=== PATIENT | female | born 1995 | race African-American/Black ===

== ENCOUNTER 2017-01-30 19:58 | Emergency (ER) | payer MEDICAID, OTHER ==
[~2017-01-30] VITALS: Ht 157.5 cm; Wt 60.0 kg
[~2017-01-30 19:58] MED LIST: IBUP400T20 PO
[2017-01-30 19:59] VITALS: BP 160/79; PULSE 85; RESP 16; TEMP 99.2; O2SAT 98
[2017-01-30] MEDS ORDERED: HYDR-3133 PO (21:14)
[2017-01-30] MEDS ORDERED: PRED20 PO (21:14)
--- NOTE | 2017-01-30 21:14 | PD ---
HPI Chief Complaint: Bite or Sting Time Seen by Provider: 20:31 Travel History International Travel<30 days: No Contact w/Intl Traveler<30days: No Traveled to known affect area: No History of Present Illness HPI 21 year-old female left no significant medical history presents to the emergency department for evaluation of that bug bites. Patient states that her mother's house has bedbugs and she was sleeping on the guest bedroom and she sustained the bites. It was sleeping on the couch in got more. She now lives with her aunt but states the bites are itching terribly. She denies any other new exposures. No fever chills. No chest parotitis. No difficulty breathing. No other symptoms to report. PFSH Past Medical History Medical History: Denies Significant Hx ?: Not Social History Alcohol Use: No Tobacco Use: No Substance Use: No Allergies-Medications (Allergen,Severity, Reaction): Coded Allergies: penicillin G (Unverified Allergy, Severe, Hives, 01/30/17) Reported Meds & Prescriptions Reported Meds & Active Scripts Active Prednisone 20 Mg Tab 20 Mg PO BID 5 Days Hydroxyzine HCl 25 Mg Tab 25 Mg PO QID PRN Review of Systems Except as stated in HPI: all other systems reviewed are Neg Physical Exam Narrative GENERAL: Well-nourished, well-developed female patient, ambulatory no acute distress SKIN: Focused skin assessment warm/dry. There are erythematous, blanchable wheals on the upper extremities, in a linear pattern. There are smaller edematous papules on the forearms. No pustule or vesicle formation. HEAD: Normocephalic. EYES: No scleral icterus. No injection or drainage. NECK: Supple, trachea midline. No JVD or lymphadenopathy. CARDIOVASCULAR: Regular rate and rhythm without murmurs, gallops, or rubs. RESPIRATORY: Breath sounds equal bilaterally. No accessory muscle use. MUSCULOSKELETAL: No cyanosis, or edema. BACK: Nontender without obvious deformity. No CVA tenderness. Data Data Last Documented VS Vital Signs Date Time Temp Pulse Resp B/P (MAP) Pulse Ox O2 Delivery O2 Flow Rate FiO2 01/30/17 19:59 99.2 85 16 160/79 (106) 98 Room Air Orders Orders Dexamethasone Inj (Decadron Inj) (01/30/17 21:15) Diphenhydramine Inj (Benadryl Inj) (01/30/17 21:15) [facility] Medical Decision Making Medical Screen Exam Complete: Yes Emergency Medical Condition: Yes Medical Record Reviewed: Yes Differential Diagnosis Insect bites versus scabies versus contact dermatitis versus folliculitis versus local reaction Narrative Course 21 year-old female presents to the emergency department for evaluation of bites. Patient's physical and history are consistent with bed but bites. She appears to be having a local reaction to the bites. Patient is given steroid and Benadryl here. She'll be prescribed additional outpatient. She is counseled on care. She agrees to return immediately with any acute worsening of symptoms. Diagnosis Primary Impression: Bed bug bite Qualified Codes: W57.XXXA - Bitten or stung by nonvenomous insect and other nonvenomous arthropods, initial encounter Referrals: Primary Care Physician Patient Instructions: Bed Bugs (ED), General Instructions Additional Instructions: It is important that your house is treated for bedbugs or you'll continue to get bitten Do not scratch the lesions Follow-up with a primary care provider Return immediately to the emergency department with any acute worsening of symptoms Med/Other Pt SpecificInfo: Prescription(s) given Scripts Prednisone (Prednisone) 20 Mg Tab 20 MG PO BID for 5 Days, #10 TAB 0 Refills Prov: Ranjana Polanco 01/30/17 Hydroxyzine HCl (Hydroxyzine HCl) 25 Mg Tab 25 MG PO QID Y for ITCHING, #20 TAB 0 Refills Prov: Ranjana Polanco 01/30/17 Disposition: 01 DISCHARGE HOME Condition: Stable Ranjana Polanco Jan 30, 2017 21:14
[2017-01-30] MEDS ORDERED: diphenhydrAMINE HCL 50 MG/ML VIAL IM ONE (21:15)
[2017-01-30] MEDS ORDERED: DEXAMETHASONE SOD PHOS 20 MG/5 ML VIAL IM ONE (21:15)
== END 2017-01-30 21:28 | disposition home or self-care (01) ==
LOC: NEPD 19:58
DX: T14.8 Other injury of unspecified body region (principal); W57.XXXA Bitten or stung by nonvenomous insect and other nonvenomous arthropods, initial encounter
CPT/HCPCS: 99284